=== PATIENT | female | born 1995 | race American Indian/Alaskan Native ===

== ENCOUNTER 2024-09-03 14:59 | Outpatient (CLI) | payer OTHER | END 2024-09-03 15:01 | disposition home or self-care (01) | LOC: PRENATAL 14:59 | PROVIDERS: ATTEND Obstetrics & Gynecology Maternal & Fetal Medicine | DX: O44.00 Complete placenta previa NOS or without hemorrhage, unspecified trimester (principal); O10.019 Pre-existing essential hypertension complicating pregnancy, unspecified trimester; Z3A.20 20 weeks gestation of pregnancy ==

== ENCOUNTER 2024-10-13 22:03 | Inpatient (IN) | payer OTHER ==
[~2024-10-13] VITALS: Ht 162.6 cm; Wt 92.1 kg
[2024-10-13 22:30] VITALS: BP 122/83
[2024-10-13] MEDS ORDERED: NIFEDIPINE20 MG PO (22:55)
[2024-10-13] MEDS ORDERED: SYNTHROID50 MCG PO (22:56)
[2024-10-13] MEDS ORDERED: PEPCID40 MG PO (22:56)
[2024-10-13] MEDS ORDERED: SINGULAIR10 MG PO (22:56)
[2024-10-13] MEDS ORDERED: PRENATAL TABLE1 EAC4 PO (22:56)
[2024-10-13 23:12] VITALS: BP 99/65; O2SAT 99
[2024-10-13 23:15] LABS: PH,URINE 6.5 (5.0-8.0); URINE APPEARANCE Cloudy; URINE BILIRRUBIN Negative (NEGATIVE); URINE BLOOD Negative; URINE COLOR Yellow; URINE GLUCOSE Negative (NEGATIVE); URINE KETONE Negative (NEGATIVE); URINE LEUKOCYTE Trace; URINE NITRATE Negative; URINE PROTEIN Negative (NEGATIVE); URINE UROBILINOGEN 0.2 E.U./dl
[2024-10-13 23:23] LABS: URINE BACTERIA 3992.4 uL (0.0-1933); URINE EPITHELIAL CELLS 112.2 uL (0.0-38.8); URINE RBC 2.3 uL (0.0-20.8); URINE WBC 150.5 uL (0.0-23.2)
[2024-10-13 23:24] LABS: HEMATOCRIT 34.1 % (36.0-45.00); MEAN CELL VOLUME 83.2 fL (80.00-100.00); PLATELET COUNT 297 K/uL (150-450); RED BLOOD COUNT 4.09 M/uL (4.00-6.00); RED CELL DISTRIBUTION WIDTH 13.3 % (11.5-14.5)
[2024-10-13 23:40] LABS: HEMOGLOBIN 11.9 g/dL (12.0-15.00)
[2024-10-14] VITALS (7 sets, daily range): BP systolic 94–122; BP diastolic 60–83; O2SAT 98–99
[2024-10-14] LABS: URINE CAST 0.44 uL (0.0-1.40)
[2024-10-14] MEDS ORDERED: ACETAMINOPHEN 500 MG GEL..CAP PO ONE ×2 (03:33→03:45)
[2024-10-14] MEDS ORDERED: CEFAZOLIN SODIUM 1,000 MG VIAL IV SCH (12:00)
[2024-10-14] MEDS ORDERED: FAMOTIDINE/PF 20 MG/2 ML VIAL ONE (12:57)
[2024-10-14 13:20] LABS: ALBUMIN 2.6 gm/dL (3.4-5.0); BILIRUBIN TOTAL 0.2 mg/dL (0.3-1.2); CALCIUM 9.2 mg/dL (8.5-10.1); CREATININE SERUM 0.47 mg/dL (0.55-1.02); GFR 157.78; GLOBULINA 3.8 G/DL (2.4-3.5); POTASSIUM 3.94 mEq/L (3.5-5.1); T4 FREE 0.85 NG/ML (0.76-1.46); TOTAL PROTEIN 6.4 gm/dL (6.4-8.2)
[2024-10-14] MEDS ORDERED: FAMOTIDINE/PF 20 MG/2 ML VIAL IV SCH (17:00)
[2024-10-15 04:00] VITALS: BP 114/75
[2024-10-15 06:08] VITALS: BP 99/67; O2SAT 97
[2024-10-15 11:13] VITALS: BP 94/62
[2024-10-15] MEDS ORDERED: LEVOTHYROXINE SODIUM 50 MCG TABLET PO NR (12:30)
[2024-10-15 15:08] VITALS: BP 111/70
[2024-10-15 19:48] VITALS: BP 112/82
[2024-10-15 23:07] VITALS: BP 93/60
[2024-10-16 03:42] VITALS: BP 112/72
[2024-10-16 05:59] VITALS: BP 111/73; O2SAT 98
[2024-10-16] MEDS ORDERED: LEVOTHYROXINE SODIUM 75 MCG TABLET PO SCH (06:00)
[2024-10-16] MEDS ORDERED: LEVOTHYROXINE SODIUM 50 MCG TABLET PO SCH (06:00)
[2024-10-16] MEDS ORDERED: ACETAMINOPHEN 500 MG GEL..CAP PO ONE ×2 (07:56→08:00)
[2024-10-16 11:00] VITALS: BP 107/73
[2024-10-16 15:13] VITALS: BP 114/71
== END 2024-10-16 18:42 | disposition home or self-care (01) | DRG 833 ==
LOC: OBS/DEL 22:03 → LDR 10-14 13:39
PROVIDERS: Obstetrics & Gynecology Maternal & Fetal Medicine; ADMIT Obstetrics & Gynecology Obstetrics; ATTEND Obstetrics & Gynecology Obstetrics
PROC: 4A1HXCZ Monitoring of Products of Conception, Cardiac Rate, External Approach (ICD-10-PCS; principal; 2024-10-14)
PROC: BY4CZZZ Ultrasonography of Second Trimester, Single Fetus (ICD-10-PCS; 2024-10-14)
DX: O36.8320 Maternal care for abnormalities of the fetal heart rate or rhythm, second trimester, not applicable or unspecified (principal); O26.842 Uterine size-date discrepancy, second trimester; O36.8120 Decreased fetal movements, second trimester, not applicable or unspecified; Z3A.26 26 weeks gestation of pregnancy

== ENCOUNTER 2024-11-25 12:50 | Inpatient (IN) | payer OTHER ==
[~2024-11-25] VITALS: Ht 162.6 cm; Wt 1.8 kg
[2024-11-25 11:38] VITALS: BP 120/80
[~2024-11-25 12:50] MED LIST: NIFEDIPINE20 MG PO; PEPCID40 MG PO; PRENATAL TABLE1 EAC4 PO; SINGULAIR10 MG PO; SYNTHROID50 MCG PO
[2024-11-25] MEDS ORDERED: RINGERS SOLUTION,LACTATED 1,000 ML IV SCH (13:00)
[2024-11-25] MEDS ORDERED: BETAMETHASONE ACETATE,SOD PHOS 30 MG/5 ML ML IM ONE (13:00)
[2024-11-25] MEDS ORDERED: SYNTHROID75 MCG (13:13)
[2024-11-25 14:25] LABS: PH,URINE 7.5 (5.0-8.0); URINE APPEARANCE Cloudy; URINE BILIRRUBIN Negative (NEGATIVE); URINE BLOOD Negative; URINE COLOR Dark Yellow; URINE GLUCOSE Negative (NEGATIVE); URINE LEUKOCYTE Negative; URINE NITRATE Negative
[2024-11-25 14:26] LABS: HEMATOCRIT 36.8 % (36.0-45.00); HEMOGLOBIN 12.4 g/dL (12.0-15.00); MEAN CELL VOLUME 82.4 fL (80.00-100.00); MEAN CORPUSCULAR HEMOGLOBIN 27.8 pg (27.00-32.0); MEAN CORPUSCULAR HGB CONC 33.7 g/dl (32.0-36.0); PLATELET COUNT 305 K/uL (150-450); RED BLOOD COUNT 4.46 M/uL (4.00-6.00); RED CELL DISTRIBUTION WIDTH 13.5 % (11.5-14.5)
[2024-11-25 14:27] LABS: URINE BACTERIA 2384.3 uL (0.0-1933); URINE CAST 15.17 uL (0.0-1.40); URINE EPITHELIAL CELLS 97.2 uL (0.0-38.8); URINE RBC 7.9 uL (0.0-20.8)
[2024-11-25 14:39] LABS: PARTIAL THROMBOPLASTIN TIME 25.8 SECONDS (22.0-34.0); PROTHROMBIN TIME 10.9 SECONDS (9.0-11.5)
[2024-11-25 15:01] LABS: ALBUMIN 2.8 gm/dL (3.4-5.0); BILIRUBIN TOTAL 0.26 mg/dL (0.3-1.2); CALCIUM 9.1 mg/dL (8.5-10.1); CREATININE SERUM 0.59 mg/dL (0.55-1.02); GFR 121.37; GLOBULINA 3.9 G/DL (2.4-3.5); POTASSIUM 3.86 mEq/L (3.5-5.1); TOTAL PROTEIN 6.7 gm/dL (6.4-8.2)
[2024-11-25 15:11] VITALS: BP 104/71
[2024-11-25 15:23] LABS: URINE KETONE >=160 (NEGATIVE); URINE PROTEIN 100 (NEGATIVE)
[2024-11-25] MEDS ORDERED: FAMOTIDINE/PF 20 MG/2 ML VIAL IV PUSH SCH (18:10)
[2024-11-25 20:53] VITALS: BP 115/79
[2024-11-25 23:21] VITALS: BP 95/60
[2024-11-26 03:45] VITALS: BP 105/62
[2024-11-26 07:17] VITALS: BP 106/66
[2024-11-26 11:16] VITALS: BP 110/76
[2024-11-26] MEDS ORDERED: BETAMETHASONE ACETATE,SOD PHOS 30 MG/5 ML ML IM ONE (13:15)
[2024-11-26 15:14] VITALS: BP 100/63
[2024-11-26 18:19] LABS: URINE PROT QUANT 24HR 12.6 MG/DL
[2024-11-26 18:59] LABS: URINE PROT QUANT 24 HR 352.8 MG/24HR (42-225)
[2024-11-26 20:00] VITALS: BP 107/67
[2024-11-26 23:27] VITALS: BP 96/61
[2024-11-27 03:28] VITALS: BP 100/61; O2SAT 97
[2024-11-27 08:13] VITALS: BP 112/77
[2024-11-27 12:06] VITALS: BP 100/67
[2024-11-27 15:10] VITALS: BP 98/64
[2024-11-27] MEDS ORDERED: MAGNESIUM SULFATE IN WATER 500 ML IV SCH (18:15)
[2024-11-27 19:45] VITALS: BP 116/73
[2024-11-27 23:26] VITALS: BP 118/71
[2024-11-28] VITALS (9 sets, daily range): BP systolic 101–119; BP diastolic 63–75; O2SAT 99
[2024-11-28] MEDS ORDERED: ERYTHROMYCIN BASE OPHT 1GM EACH TUBE OP ONE (11:00)
[2024-11-28] MEDS ORDERED: OXYTOCIN 10 UNITS/ML VIAL IV ONE (11:00)
[2024-11-28] MEDS ORDERED: MORPHINE SULFATE 4 MG/ML CARTRIDGE IV PRN (13:15)
[2024-11-28] MEDS ORDERED: MORPHINE SULFATE 4 MG/ML VIAL IV ONE ×2 (14:00→14:30)
[2024-11-28] MEDS ORDERED: PROMETHAZINE HCL 25 MG/ML AMPUL IM ONE (17:00)
[2024-11-28] MEDS ORDERED: MEPERIDINE HCL/PF 25 MG/ML VIAL IM ONE (17:00)
[2024-11-28] MEDS ORDERED: PROMETHAZINE HCL 25 MG/ML AMPUL IM PRN (17:00)
[2024-11-28] MEDS ORDERED: MEPERIDINE HCL/PF 50 MG/ML VIAL IM PRN (17:00)
[2024-11-28 21:03] LABS: HEMATOCRIT 30.9 % (36.0-45.00); HEMOGLOBIN 10.6 g/dL (12.0-15.00); MEAN CELL VOLUME 82.2 fL (80.00-100.00); MEAN CORPUSCULAR HEMOGLOBIN 28.1 pg (27.00-32.0); MEAN CORPUSCULAR HGB CONC 34.2 g/dl (32.0-36.0); PLATELET COUNT 259 K/uL (150-450); RED BLOOD COUNT 3.76 M/uL (4.00-6.00); RED CELL DISTRIBUTION WIDTH 13.7 % (11.5-14.5)
[2024-11-29 02:47] VITALS: BP 113/73
[2024-11-29 07:10] VITALS: BP 104/68
[2024-11-29] MEDS ORDERED: OxyCODONE HCL/APAP UD (PERCOCET) PO PRN (10:45)
[2024-11-29 12:00] VITALS: BP 94/65
[2024-11-29 15:10] VITALS: BP 119/78
[2024-11-29 18:56] VITALS: BP 114/75
[2024-11-29 20:53] VITALS: BP 129/87
[2024-11-30] VITALS (8 sets, daily range): BP systolic 96–129; BP diastolic 68–90
[2024-11-30] MEDS ORDERED: PROMETHAZINE HCL 25 MG/ML AMPUL IV NR (10:15)
[2024-11-30] MEDS ORDERED: ONDANSETRON HCL 2 MG/ML VIAL IV NR (16:00)
[2024-11-30] MEDS ORDERED: NIFEDIPINE 30 MG TAB.SA.OSM PO NR (16:00)
[2024-11-30] MEDS ORDERED: MAGNESIUM SULFATE IN WATER 500 ML IV SCH (16:00)
[2024-11-30] MEDS ORDERED: SIMETHICONE 125 MG CAPSULE PO NR (16:15)
[2024-12-01] MEDS ORDERED: SIMETHICONE 125 MG CAPSULE PO ONE (01:45)
[2024-12-01 03:18] VITALS: BP 102/69; BP 107/61
[2024-12-01 06:05] VITALS: BP 123/85; O2SAT 97
[2024-12-01] MEDS ORDERED: FAMOTIDINE/PF 20 MG/2 ML VIAL IV PUSH PRN ×2 (06:15→07:00)
[2024-12-01 11:28] VITALS: BP 112/77
[2024-12-01 15:06] VITALS: BP 113/74
== END 2024-12-01 16:55 | disposition home or self-care (01) | DRG 787 ==
LOC: LDR 12:50 → OB/GYN 11-29 19:26 → LDR 12-01 12:52
PROVIDERS: ADMIT Obstetrics & Gynecology Obstetrics; ATTEND Obstetrics & Gynecology Obstetrics
PROC: 4A1HXCZ Monitoring of Products of Conception, Cardiac Rate, External Approach (ICD-10-PCS; 2024-11-25)
PROC: 10D00Z1 Extraction of Products of Conception, Low, Open Approach (ICD-10-PCS; principal; 2024-11-28 10:00)
DX: O15.1 Eclampsia complicating labor (principal); G40.802 Other epilepsy, not intractable, without status epilepticus; O99.354 Diseases of the nervous system complicating childbirth; Z3A.32 32 weeks gestation of pregnancy; Z37.0 Single live birth
CPT/HCPCS: 70544